=== PATIENT | male | born 1965 | race Caucasian/White ===

== ENCOUNTER 2017-05-20 19:59 | Emergency (ER) | payer OTHER ==
[2017-05-20 20:07] VITALS: BP 139/95
--- NOTE | 2017-05-20 20:51 | RAD ---
HISTORY: Cough COMPARISONS: None VIEWS: 4: Frontal dual-energy and lateral views of the chest. FINDINGS: CARDIOMEDIASTINAL SILHOUETTE: The cardiomediastinal silhouette is normal. RAYMOND: The raymond are normal. PLEURA: The costophrenic angles are sharp. No pleural abnormalities are noted. LUNG PARENCHYMA: The lungs are clear. ABDOMEN: The upper abdomen is clear. There is no subphrenic gas. BONES AND SOFT TISSUES: No bone or soft tissue abnormalities are noted. OTHER: None. IMPRESSION: NO ACTIVE CARDIOPULMONARY DISEASE.
[2017-05-20] MEDS ORDERED: Azithromycin TAB* 250 MG PO ONE (21:06)
--- NOTE | 2017-05-29 07:57 | UC ---
Miguel Ángel George Nikita, scribed for Richard Bryant MD on 05/20/17 at 2040 . Respiratory Complaint HPI - HPI Summary HPI Summary: This patient is a 51 year old M presenting to [facility] with a chief complaint of productive cough and URI symptoms since today. The patient rates the pain 6/10 in severity. Symptoms aggravated by nothing. Symptoms alleviated by nothing. Patient reports PEREZ, chest and sinus congestion, rhinorrhea, sore throat, body aches, and fever since 5 days ago. - History of Current Complaint Chief Complaint: UCRespiratory Stated Complaint: COUGH, AND CHEST CONGESTION Time Seen by Provider: 05/20/17 20:17 Hx Obtained From: Patient Onset/Duration: Sudden Onset, Lasting Days, Still Present Timing: Constant Severity Initially: Moderate Severity Currently: Moderate Pain Intensity: 6 Pain Scale Used: 0-10 Numeric Character: Cough: Productive Aggravating Factors: Nothing Alleviating Factors: Nothing Associated Signs And Symptoms: Positive: URI - Patient reports PEREZ, chest and sinus congestion, rhinorrhea, sore throat, body aches, and fever since 5 days ago and a productive cough since today. - Allergies/Home Medications Allergies/Adverse Reactions: Allergies Allergy/AdvReac Type Severity Reaction Status Date / Time No Known Allergies Allergy Verified 05/20/17 20:08 PMH/Surg Hx/FS Hx/Imm Hx Endocrine History: Other Other Endocrine History: No DM Cardiovascular History: Other Other Cardiovascular History: NO CAD, HTN Respiratory History: Other Other Respiratory History: Hx of reactive airway disease - Surgical History Surgical History: None - Family History Known Family History: Negative: Cardiac Disease, Hypertension, Diabetes - Social History Alcohol Use: Occasionally Substance Use Type: None Smoking Status (MU): Never Smoked Tobacco Review of Systems Constitutional: Fever ENT: Sore Throat, Sinus Congestion, Other - rhinorrhea Respiratory: Cough - productive, Other - chest congestion Musculoskeletal: Other: - body aches Neurological: Headache All Other Systems Reviewed And Are Negative: Yes Physical Exam - Summary Physical Exam Summary: VITAL SIGNS: Reviewed. GENERAL: ~Patient is a well-developed and nourished MALE who is lying comfortable in the stretcher. ~Patient is not in any acute respiratory distress. HEAD AND FACE: Normocephalic, Nasal clear discharge. EYES: PERRLA, EOMI x 2. EARS: Hearing grossly intact. MOUTH: Oropharynx within normal limits. NECK: Supple, trachea is midline, no adenopathy, no JVD, no carotid bruit. CHEST: Symmetric, no tenderness at palpation LUNGS: Coarse breath sounds bilataterally. CVS: Regular rate and rhythm, S1 and S2 present, no murmurs or gallops appreciated. ABDOMEN: Soft, non-tender. Bowel sounds are normal. No abdominal abnormal pulsations. EXTREMITIES: Full ROM in all major joints, no edema, no cyanosis or clubbing. NEURO: Alert and oriented x 3. No acute neurological deficits. Speech is normal and follows commands. SKIN: Dry and warm Triage Information Reviewed: Yes Vital Signs: Initial Vital Signs Temp 99.1 F 05/20/17 20:05 Pulse 97 05/20/17 20:05 Resp 18 05/20/17 20:05 BP 139/95 05/20/17 20:05 Pulse Ox 98 05/20/17 20:05 Diagnostic Evaluation - Laboratory O2 Sat by Pulse Oximetry: 98 - Radiology Radiology Interpretation Completed By: Radiologist - CXR reveals NO ACTIVE CARDIOPULMONARY DISEASE. [facility] physician has reviewed this radiology report. Respiratory Course/Dx - Course Course Of Treatment: CXR reveals NO ACTIVE CARDIOPULMONARY DISEASE. The patient was found to have increased BP in UC. The patient will follow up with PCP for better control of BP. I discussed all the findings and test results with the patient. Patient was instructed to return to the urgent care or go to ER immediately if any of the symptoms return or worsens. Plan of care was discussed with the patient, and patient understands and agrees. All questions were answered to patient satisfaction. There were no further complaints or concerns. - Differential Dx/Diagnosis Differential Diagnosis/HQI/PQRI: Bronchitis Provider Diagnoses: bronchitis Discharge - Sign-Out/Discharge Documenting (check all that apply): Discharge - Discharge Plan Condition: Stable Disposition: HOME Prescriptions: Azithromycin TAB* [Zithromax TAB (Z-KRISTOPHER) 250 mg #6 tabs] 250 mg PO DAILY #4 tab Benzonatate CAP* [Tessalon 100 MG CAP*] 100 mg PO TID PRN #12 cap PRN Reason: Cough Patient Education Materials: Acute Bronchitis (ED) Referrals: Amor Arambula MD [Primary Care Provider] - Additional Instructions: Take medications as instructed Increase your fluid intake Return to the UC if symptoms worsen FOLLOW UP WITH YOUR PRIMARY CARE PROVIDER WITHIN ONE WEEK FOR HIGH BLOOD PRESSURE NOTED TODAY. RETURN TO URGENT CARE OR THE ED FOR ANY WORSENING OR NEW SYMPTOMS. The documentation as recorded by the Miguel Ángel benavides Nikita accurately reflects the service I personally performed and the decisions made by me, Richard Bryant MD.
== END 2017-05-20 21:15 | disposition home or self-care (01) ==
LOC: UCEAST 19:59
DX: J40 Bronchitis, not specified as acute or chronic (principal)
CPT/HCPCS: 71046; 87502; 99212; A9270-GY; G0463